=== PATIENT | female | born 1960 | race Caucasian/White ===

== ENCOUNTER 2023-03-30 09:07 | Emergency (ER) | payer OTHER, SELFPAY ==
[2023-03-30 09:16] VITALS: BP 159/96
[2023-03-30 09:41] VITALS: BMI 31.5
[2023-03-30 10:00] VITALS: BP 121/67
--- NOTE | 2023-03-30 10:11 | ED.GENMED ---
History of Present Illness
General
Chief Complaint: Chest Pain
Time Seen by Provider: 03/30/23 10:06
Travel History
Have you had any contact with someone who has COVID-19?: No
Do you have any symptoms of coronavirus? Fever > 100 degrees, chills, cough, shortness of breath, sore throat, loss of taste or smell, muscle aches, or headache?: No
History of Present Illness
History of Present Illness:
HPI: The patient presents with left-sided chest discomfort described as pleuritic in nature that worsens with taking a deep breath. She has no shortness of breath this is associated with vomiting. About 5 days ago, she started having abdominal
pain. She has no back pain. She reports normal mammogram 5 months ago and states she has had no rash.
EXAM:
GENERAL: Well appearing in no distress
HEENT: Moist oral mucosa
CARDIOVASCULAR: No murmurs, normal heart rate and rhythm, moderate left breast/medial left chest wall tenderness
PULMONARY: No respiratory distress, breath sounds are clear and equal
ABDOMEN: Soft with no peritoneal signs, no tenderness
NEUROLOGIC: Excellent strength all extremities, no coordination deficits
PSYCHIATRIC: Appropriate mental status, normal insight and judgement
EXTREMITIES: Nontender, no edema, moves all extremities equally
SKIN: No rash, no lesions
ED COURSE:
11:20 AM: I initially evaluated patient
NUMBER AND COMPLEXITY OF PROBLEMS ADDRESSED AT THE ENCOUNTER
� Chronic conditions affecting care: Anxiety/depression, she has had left kidney removed
� Acute Exacerbation and/or Progression of Chronic Illness: This is an acute problem
� Differential Diagnosis includes: Costochondritis, viral syndrome, gastroenteritis, dehydration, CARLOS, shingles
AMOUNT AND/OR COMPLEXITY OF DATA TO BE REVIEWED AND ANALYZED
� I performed an independent evaluation of and my interpretation is:
EKG: Sinus 59, normal axis, no acute ST abnormality
CT:
X-rays: I personally viewed chest x-ray which is relatively unremarkable
Laboratory Studies: CBC unremarkable, chemistries unremarkable, troponin less than 0.012,
Other:
� Review of other/old records: No old records available for review
� Clinical information was obtained by an independent historian: present at bedside
� Prescriptions/Medications Considered but not given:
� Further testing considered but not performed:
RISK OF COMPLICATIONS AND/OR MORBIDITY OR MORTALITY OF PATIENT MANAGEMENT
� Social determinants of health affecting care: Lives at home
� Discussion with other providers:
� Escalation of care including admission/observation vs risk of discharge considered: The patient was given Zofran initially and does report no nausea on reassessment. Will try Toradol. Labs are unremarkable. Palpation of the
left side of the chest wall clearly makes the pain worse. On reassessment at 1 PM, the patient reports some improvement after Toradol. She is already on steroids for history of polymyalgia rheumatica. Will try short course of tramadol as well as
Zofran for symptomatic control.
Phy Exam
Physical Exam
Physical Exam:
See HPI
Scores
Heart Score for Chest Pain Patients
STEMI patient?: Not applicable
Course
Orders/Labs/Results
Orders:
Orders
03/30/23 09:11
Electrocardiogram (*1) Urgent
Reason for Study: Chest Pain
EKG- Treatment ONCE
03/30/23 09:55
Troponin I Urgent
03/30/23 09:58
Complete Blood Count/With Diff Urgent
Comprehensive Metabolic Panel Urgent
03/30/23 10:15
Ondansetron Injectable [Zofran] 4 mg IV NOW STA
03/30/23 10:30
CR Chest - 2 Views Urgent
Comment:
Reason For Exam: L cp
03/30/23 11:23
0.9% Sodium Chloride 500 ml [Nss] 500 ml IV BOLUS
Ketorolac [Toradol] 15 mg IV NOW STA
Abnormal Lab Results
03/30/23
09:58
MCH 31.8 H pg
(27.0-31.0)
Absolute Neuts (auto) 6.9 H 10^3/uL
(1.4-6.5)
Glucose 110 H mg/dl
(70-99)
03/30/23 09:58
03/30/23 09:58
Vital Signs
Initial and Last Documented VS:
Initial Vital Signs
Temp Pulse Resp BP Pulse Ox
97.4 F 67 16 159/96 97
03/30/23 09:16 03/30/23 09:16 03/30/23 09:16 03/30/23 09:16 03/30/23 09:16
Last Documented Vital Signs
Temp Pulse Resp BP Pulse Ox
97.4 F 67 16 159/96 97
03/30/23 09:16 03/30/23 09:16 03/30/23 09:16 03/30/23 09:16 03/30/23 09:16
*Critical Care Note
Total Time (30-74mins, 75-104mins- exclusive of procedures): Not Applicable
ED Attending Note
-
Portions of this chart may have been created with voice recognition software.� Occasional wrong word or��sound alike� substitutions may have occurred due to the inherent limitations of voice recognition software.
Discharge Plan
Departure
Patient Disposition: Home (Routine Discharge)
Date of Disposition: 03/30/23
Time of Disposition: 13:01
Patient with high blood pressure during this ER visit?: Yes
Discharge Problem:
Chest pain
Instructions: Costochondritis (DC), Chest Pain PCP Follow Up
Prescriptions:
New
ondansetron HCl 4 mg tablet
4 mg PO TID PRN (Reason: nausea and vomiting) Qty: 14 0RF
tramadol 50 mg tablet
50 - 100 mg PO Q8H PRN (Reason: Pain) Qty: 14 0RF
Referrals:
Manas Wheatley, DO [Family Provider] -
Activity Restrictions/Additional Instructions:
Your symptoms may be related to pain coming from the chest wall. Your white blood cell count is normal, cardiac blood work is normal. Chest x-ray shows no sign of air outside of the lung, pneumothorax or other concern.
Interventions
Interventions:
*Risk Screen - Suicide Last Done: 03/30/23 09:21
*General Assessment Last Done: 03/30/23 09:21
*Neglect/Abuse Screening Last Done: 03/30/23 09:21
*ED COVID-19 Vaccine History Last Done: 03/30/23 09:21
ED- Cardiac Assessment Last Done: 03/30/23 09:41
[2023-03-30 10:15] LABS: % Basophils 0.3 % (0-2); % Eosinophils 0.4 % (0-6); % Immature Granulocytes 0.3 % (0-0.5); % Lymphocytes 25.5 % (20.5-51.1); % Monocytes 2.8 % (1.7-9.3); % Neutrophils 70.7 % (42.2-75.2); Absolute Lymphocytes 2.5 10^3/uL (1.2-3.4); Absolute Monocytes 0.3 10^3/uL (0.1-0.6); Absolute Neutrophils 6.9 10^3/uL (1.4-6.5); Hematocrit 42.3 % (37.0-47.0); Hemoglobin 14.2 g/dL (12.0-16.0); Mean Corp Hgb Conc. 33.6 g/dL (33.0-37.0); Mean Corpuscular Hgb 31.8 pg (27.0-31.0); Mean Corpuscular Volume 94.8 fL (81.0-99.0); Mean Platelet Volume 9.5 fL (7.4-10.4); Nucleated Red Blood Cells % 0 %; Platelet Count 288 10^3/uL (130-400); Red Blood Cell Count 4.46 10^6/uL (4.20-5.40); Red Cell Dist. Width 12.3 % (11.5-14.5); White Blood Cell Count 9.8 10^3/uL (4.8-10.8)
[2023-03-30] MEDS: ZOFRAN 4 MG IV (10:18)
[2023-03-30 10:28] LABS: ALT (SGPT) 27 U/L (0-35); AST (SGOT) 28 U/L (14-36); Albumin 4.4 g/dl (3.5-5.0); Alkaline Phosphatase 120 U/L (38-126); Blood Urea Nitrogen 13 mg/dl (7-17); Calcium 9.2 mg/dl (8.4-10.2); Carbon Dioxide 23 mmol/L (22-30); Chloride 107 mmol/L (98-107); Estimated Creatinine Clearance 95 ml/min; Glucose 110 mg/dl (70-99); Potassium 3.7 mmol/L (3.5-5.1); Sodium 139 mmol/L (135-145); Total Bilirubin 0.6 mg/dl (0.2-1.3); Total Protein 7.1 g/dl (6.3-8.2); eGFR > 60.00
[2023-03-30 10:59] LABS: Troponin I < 0.012 ng/ml
[2023-03-30 11:00] VITALS: BP 118/78
[2023-03-30] MEDS: TORADOL 15 MG IV (11:30)
[2023-03-30] MEDS: NSS 500 IV (11:31)
[2023-03-30 13:21] VITALS: BP 121/67
[2023-03-30 13:27] VITALS: BP 121/67
== END 2023-03-30 13:30 | disposition home or self-care (01) ==
LOC: EMR 09:07
PROVIDERS: Registered Nurse; EMERGENCY PHYSICIAN Emergency Medicine; FAMILY PHYSICIAN Student in an Organized Health Care Education/Training Program
DX: R07.89 Other chest pain (principal)
CPT/HCPCS: 99283; 96374; 96375; 71046; 80053; 84484; 85025; 93005